=== PATIENT | female | born 1950 | race Caucasian/White ===

== ENCOUNTER 2016-08-13 06:56 | Emergency (ER) | payer MEDICAID, MEDICARE ==
[~2016-08-13] VITALS: Ht 162.6 cm; Wt 86.4 kg
[~2016-08-13 06:56] MED LIST: ACET325T51 PO; ASPI-973 PO; ATOR80TA77 PO; BISA-67 PO; BISA10SU61 RC; CARV6.252 PO; CLOP75TA28 PO; ERGO500050 PO; FENT1PAT7 TRANSDERM; FLUT16SP NS; FOLI1TAB18 PO; GABA-500 PO; GABA-502 PO; GERITUSSIN PO; INSLIS SUBQ; INSU100V7 SUBQ; ISOS30TA4 PO; LEVO75TA4 PO; LOPE2CAP PO; MAGN400O4 PO; MAGN400T23 PO; MECL-114 PO; NA P133E23 RC; NITR0.4T6 SL; ONDA-53 PO; OXYC1TAB24 PO; PANT40TA3 PO; PROC25SU30 RC; VIT1TABL50 PO
--- NOTE | 2016-08-13 07:00 | ED.REPORT ---
HPI-Chest Pain 40 and Over Date of Service Aug 13, 2016 ED Provider: Dr. Norris Pt is a 66 y/o female w/ a hx of ESRD on hemodialysis (MWF), CVA, ischemic cardiomyopathy, CAD, diabetes, HTN, CHF, hyperlipidemia, pulmonary hypertension , presenting to the ED via EMS c/o CP onset prior to arrival. The pt's CP began during a dialysis treatment which is a common occurrence for her. She had no CP prior to dialysis. She is not prescribed any pain medication but goes to the ED each time. She c/o associated productive cough for 1 wk, pleuritic pain. She denies fever, nausea, vomiting. Nursing Notes Stated Complaint: CHEST PAIN Nursing Notes Reviewed: Yes Allergies: Coded Allergies: Penicillins (Verified Allergy, Unknown, 07/19/16) Sulfa (Sulfonamide Antibiotics) (Verified Allergy, Unknown, 07/19/16) quinine (Verified Allergy, Unknown, 07/19/16) Uncoded Allergies: STRAWBERRIES (Allergy, Mild, 07/04/13) RASH Scheduled Aspirin (Aspirin) 81 Mg Tablet 81 MG PO DAILY Atorvastatin Calcium (Atorvastatin Calcium) 80 Mg Tablet 80 MG PO HS Carvedilol (Carvedilol) 6.25 Mg Tablet 12.5 MG PO BID Clopidogrel (Clopidogrel) 75 Mg Tablet 75 MG PO DAILY Ergocalciferol (Vitamin D2) (Drisdol) 50,000 Unit Capsule 50,000 UNIT PO Q7D On Tuesday Fentanyl 25 mcg/hr Patch (Fentanyl 25 mcg/hr Patch) 1 Each Patch.td72 1 PATCH TRANSDERM Q3D Fluticasone Propionate (Fluticasone Propionate Nasal) 16 Gm [place].susp 2 SPRAY NS DAILY Folic Acid (Folic Acid) 1 Mg Tablet 1 MG PO DAILY Gabapentin (Gabapentin) 100 Mg Capsule 100 MG PO Bid at 0500 and 1700 Gabapentin (Gabapentin) 300 Mg Capsule 300 MG PO HS Insulin Glargine (Lantus U100 Insulin Vial) 100 Unit/Ml Vial 20 UNIT SUBQ QAM Insulin Glargine (Lantus U100 Insulin Vial) 100 Unit/Ml Vial 25 UNIT SUBQ QPM Insulin Human Lispro (HumaLOG U100 Insulin Vial) 100 Unit/Ml Unit 10 UNIT SUBQ TID on ,,, Check blood sugars before meals and at bedtime. Use correction factor only before meals. Blood Sugar Lispro Correction: <151, 0 units; 151-175, 1 unit; 176-200, 2 units; 201-225, 3 units; 226-250, 4 units; 251-275, 5 units; 276-300 , 6 units; 301-325, 7 units; 326-350, 8 units; 351-375, 9 units; 376-400, 10 units; >400, 12 units. Insulin Human Lispro (HumaLOG U100 Insulin Vial) 100 Unit/Ml Unit 10 UNIT SUBQ M ,W,F Isosorbide MN ER (Isosorbide MN ER) 30 Mg Tab.er.24h 30 MG PO Siddiqui,,,Sa Levofloxacin (Levaquin) 500 Mg Tablet 500 MG PO every other day Levothyroxine (Levothyroxine) 75 Mcg Tablet 75 MCG PO DAILY Magnesium Oxide (Mag-Oxide) 400 Mg Tablet 400 MG PO BID Pantoprazole DR (Pantoprazole DR) 40 Mg Tablet.dr 40 MG PO DAILY Vit B Cmplx 3/FA/Vit C/Biotin (Nephro-Alyssa Rx) 1 Each Tablet 1 TAB PO DAILY oxyCODONE-Acetaminophen 5-325 mg (oxyCODONE-Acetaminophen 5-325 mg) 1 Each Tablet 1 TAB PO AC dialysis M,W,F Scheduled PRN ([geritussin]) 10 ML PO BID PRN PRN For Cough Acetaminophen (Acetaminophen) 325 Mg Tablet 650 TAB PO Q4 PRN PRN For Pain Bisacodyl (Dulcolax Rectal) 10 Mg Supp.rect 10 MG RC DAILY PRN PRN For Constipation If no BM x3 days Bisacodyl (Dulcolax) 5 Mg Tablet.dr 10 MG PO DAILY PRN PRN For Constipation If no BM x3 days Insulin Human Lispro (HumaLOG U100 Insulin Vial) 100 Unit/Ml Unit 0-12 UNIT SUBQ TIDWM/SS PRN PRN hyperglycemia Check blood sugars before meals and at bedtime. Use correction factor only before meals. Blood Sugar Lispro Correction: <151, 0 units; 151-175, 1 unit; 176-200, 2 units; 201-225, 3 units; 226-250, 4 units; 251-275, 5 units; 276-300 , 6 units; 301-325, 7 units; 326-350, 8 units; 351-375, 9 units; 376-400, 10 units; >400, 12 units. Loperamide (Loperamide) 2 Mg Capsule 4 MG PO PRN PRN PRN For Diarrhea or Loose Stool Magnesium Hydroxide (Milk of Magnesia) 400 Mg/5 Ml Oral.susp 400 MG PO DAILY PRN PRN For Constipation Meclizine (Bonine) 25 Mg Tab.chew 12.5 MG PO DAILY PRN PRN For Dizziness Na Phos,M-B/Na Phos,Di-Ba (Fleet Enema) 133 Ml Enema 133 ML RC DAILY PRN PRN For Constipation Nitroglycerin SL (Nitroglycerin SL) 0.4 Mg Tab.subl 0.4 MG SL PRN PRN PRN For Chest Pain Ondansetron (Ondansetron) 4 Mg Tablet 4 MG PO q8 hours PRN PRN For Nausea Prochlorperazine Maleate (Compazine Suppository) 25 Mg Supp.rect 25 MG RC q6 hours PRN PRN For Nausea/Vomiting oxyCODONE-Acetaminophen 5-325 mg (oxyCODONE-Acetaminophen 5-325 mg) 1 Each Tablet 1-2 TAB PO Q6H PRN PRN For Pain General Time Seen by MD: 07:35 Chief Complaint Chest pain Hx Obtained From: Patient, EMS Arrived By: Ambulance Sudden in Onset?: Yes Onset Occurred: Just prior to arrival Symptom Duration: Since onset Location: : Substernal Quality: Painful Severity: Current: Moderate Severity: Maximum: Moderate Recent Healthcare: Recent doctor visit, Recent testing, Previous diagnosis, Prior workup Similar Sx Previous: Yes Past Medical History Past Medical History Notes: Dialysis 3x week (M,W,F) Water Supervisor: Dr. Vasquez PCP Dr. Man DNR with limited interventions Daughter's Number: Edmund [phone] Past Medical History [place] in 2013 ESRD on dialysis CVA with left sided weakness ischemic cardiomyopathy Chronic pain Chronic LBBB Pulmonary hypotension Hx GI bleed Reports: Congestive heart failure, Coronary artery disease, Diabetes mellitus, Hyperlipidemia, Hypertension Reports: Morbid Obesity, Thyroid disease Past Surgical History UE fistulas- both non functional Reports: Angioplasty, Appendectomy, Cholecystectomy, Tonsillectomy Reports: AICD Smoking History Never Smoker Social History Alcohol Use: Denies alcohol use Other Social History: , Lives in care home, Local resident Ambulatory Status Wheelchair Review of Systems Constitutional: Denies: Chills, Fever Respiratory: Reports: Pleuritic pain, Prod cough, green, Prod cough, yellow Cardiovascular: Reports: Chest pain GI: Denies: Abdominal pain, Nausea, Vomiting Complete sys rev & neg: except as marked. Physical Exam Initial Vital Signs Vital Signs (First) Date Time Temp Pulse Resp B/P Pulse Ox O2 Delivery O2 Flow Rate FiO2 08/13/16 07:06 36.7 69 15 131/62 98 Room Air Initial VS: Reviewed Head / Eyes: Atraumatic, Normocephalic, PERRL ENT: Mucous membranes moist, Conjunctiva normal, No scleral icterus Neck: Supple, Full range of motion Extremities: Vascular intact, Neuro intact, No swelling, No tenderness Skin: Warm, Dry, No cyanosis Neurologic: Alert, Oriented, Nonfocal Psychiatric: Mood/affect normal, Behavior normal, Normal thought content General/Constitutional: Awake, Alert, No acute distress, Cooperative, Not toxic appearing Respiratory / Chest: Atraumatic, Breath sounds NL, Breath sounds = bilat, No respiratory distress, No rales, No rhonchi, No wheezing, No retractions, No stridor, No chest wall deformity, No crepitus Focal, reproducible, sternal chest wall tenderness Cardiovascular: Heart rate NL, Regular rhythm, Heart sounds NL, No gallop, No murmurs, No rubs, Cap refill not delayed, Peripheral circulation NL Abdomen: Atraumatic, Soft, Non-tender, No guarding, No rebound, No palpable mass Interpretation & Diagnostics Lab Results Interpretation Test 08/13/16 08:20 ECG Interpretation ECG Interpretation: Sinus rhythm rate 67 LBBB Time: 07:51 Interpreted by: ED physician Normal ECG Interpretation: No acute ischemic changes, No change from prior ECGs (07/19/16) X-Ray Chest Interpretation Chest Xray Interpretation: IMPRESSION: 1. Lower lobe bronchitis, right greater than left. Dictated by: Gabo Blanca M.D. on 08/13/2016 at 8:10 Approved by: Gabo Blanca M.D. on 08/13/2016 at 8:10 View: Portable, 1 view Interpretation / Wet Read by: Interpret - Radiologist Re-Eval/Medical Decision Med Decision/Clinical Course Focal reproducible sternal chest wall tenderness, upon patient arrival, the patient's daughter who has power of ip technology transactions attorney, Edmund, called and requested that no labs be performed and we simply try to manage her mother's pain. She was given a Percocet 5 mg, which is her regular home dose which relieved her pain. She is discharged home with minimal if any cardiac workup though this was the wish of the patient and her daughter. Return precautions given. Incidentally x-ray shows a bronchitis pattern, clinically this is a dialysis patient with Cough and sputum I expect to be improving rather than worsening, for this reason a course of Levaquin as prescribed. Source of Hx: Old records, EMS Time of Eval: 08:18 Patient Status: Condition improved, Pain improved Re-Evaluation/Progress Note: Discussed case with the pt's daughter Edmund who is the PoA. She is requesting no labs, pain control, start antibiotics, and to call her prior to discharge. Discussed plan with pt. Pt understands and agrees with plan for treatment. F/U and RTER warnings given. All questions addressed. Counseled Regarding: Diagnosis, Need for follow-up, When/why to return to ED Discharge & Departure Primary Impression: Chest pain Chest pain type: unspecified Qualified Code: R07.9 - Chest pain, unspecified Additional Impression: Bronchitis Disposition: Home Discharge Condition All VS Reviewed: Yes Condition: Stable Additional Instructions: Continue your pain medication and other medications as prescribed. Take Levaquin as prescribed. Continue dialysis, follow up with your primary care doctor or return to the ER if worse. Referrals: Rikki Duarte MD (PCP) Shawn Attestation Portions of this note were transcribed by Rob Aragon. I, Dr. Norris personally performed the history, physical exam and medical decision-making; I reviewed and confirmed the accuracy of the information in the transcribed note. Signed by Shawn Guzman, 08/13/16 90 copies to: Rikki Duarte MD, Timothy S DO Aug 13, 2016 07:00 ROB ARAGON Aug 13, 2016 07:03
[2016-08-13 07:06] VITALS: BP 131/62; PULSE 69; RESP 15; O2SAT 100; O2SAT 98
[2016-08-13] MEDS ORDERED: oxyCODONE-Acetamin 5-325 mg Tablet PO ONE (07:40)
--- NOTE | 2016-08-13 08:12 | DRSVH ---
PROCEDURE: X-RAY CHEST ONE VIEW, PORTABLE ([id number]) INDICATIONS: COUGH TECHNIQUE: One view of the chest was acquired. COMPARISON: 07/19/2016 FINDINGS: Surgical changes and devices: Dialysis catheter. AICD. A surgical clips both axilla/upper arms. Lungs and pleura: No pleural effusions or pneumothorax. Low-volume inspiration accentuates interstit ial markings. Bronchial wall thickening is evident in the lower lobes, right greater than left. Mediastinum: Mediastinal contours appear normal. Heart size is normal. Bones and chest wall: No suspicious bony lesions. Overlying soft tissues appear unremarkable. IMPRESSION: 1. Lower lobe bronchitis, right greater than left. Dictated by: Gabo Blanca M.D. on 08/13/2016 at 8:10 Approved by: Gabo Blanca M.D. on 08/13/2016 at 8:10
[2016-08-13] MEDS ORDERED: LEVO500T16 PO (09:01)
[2016-08-13] MEDS ORDERED: levoFLOXacin 750 mg Tablet PO ONE (09:05)
[2016-08-13 09:10] VITALS: BP 135/66; PULSE 63; RESP 14; O2SAT 96
[2016-08-13 10:04] VITALS: BP 135/66; PULSE 63; RESP 14; O2SAT 96
== END 2016-08-13 09:08 | disposition home or self-care (01) ==
LOC: EDBD 06:56 → SED 06:56
DX: J40 Bronchitis, not specified as acute or chronic (principal); I25.2 Old myocardial infarction; I13.11 Hypertensive heart and chronic kidney disease without heart failure, with stage 5 chronic kidney disease, or end stage renal disease; E11.59 Type 2 diabetes mellitus with other circulatory complications; E11.22 Type 2 diabetes mellitus with diabetic chronic kidney disease; I50.9 Heart failure, unspecified; N18.6 End stage renal disease; I25.10 Atherosclerotic heart disease of native coronary artery without angina pectoris; I69.398 Other sequelae of cerebral infarction; R53.1 Weakness; I25.5 Ischemic cardiomyopathy; E07.9 Disorder of thyroid, unspecified; E78.5 Hyperlipidemia, unspecified; Z99.2 Dependence on renal dialysis; Z95.810 Presence of automatic (implantable) cardiac defibrillator; Z79.82 Long term (current) use of aspirin; Z79.4 Long term (current) use of insulin; Z88.0 Allergy status to penicillin; Z88.2 Allergy status to sulfonamides; Z88.8 Allergy status to other drugs, medicaments and biological substances

== ENCOUNTER 2016-08-23 06:26 | Emergency (ER) | payer MEDICARE ==
[~2016-08-23] VITALS: Ht 165.1 cm; Wt 90.9 kg
[~2016-08-23 06:26] MED LIST changes: +LEVO500T16 PO
[2016-08-23 06:29] VITALS: BP 116/60; PULSE 62; RESP 18; O2SAT 91
--- NOTE | 2016-08-23 06:38 | ED.REPORT ---
HPI-Abd Pain F 40 and Over Date of Service Aug 23, 2016 ED Provider: Cheng Hylton MD Pt is a 66 y/o female with an appendectomy in the past and is ESRD on dialysis. who presents to ED via taxi for dull RLQ abdominal pain and right flank pain onset this morning upon awakening. She also reports nausea, dizziness, and SOB. Pt denies vomiting, diarrhea, chest pain and dysuria. Last dialysis was yesterday. Patient is a poor historian. Nursing Notes Stated Complaint: LOW ABDOMINAL PAIN Chief Complaint: Female Abdominal Pain Nursing Notes Reviewed: Yes ([employer] not reconciled EMR indicates ho Plavix use) Allergies: Coded Allergies: Penicillins (Verified Allergy, Unknown, 08/23/16) Sulfa (Sulfonamide Antibiotics) (Verified Allergy, Unknown, 08/23/16) quinine (Verified Allergy, Unknown, 08/23/16) Uncoded Allergies: STRAWBERRIES (Allergy, Mild, 07/04/13) RASH Scheduled Aspirin (Aspirin) 81 Mg Tablet 81 MG PO DAILY Atorvastatin Calcium (Atorvastatin Calcium) 80 Mg Tablet 80 MG PO HS Carvedilol (Carvedilol) 6.25 Mg Tablet 12.5 MG PO BID Clopidogrel (Clopidogrel) 75 Mg Tablet 75 MG PO DAILY Ergocalciferol (Vitamin D2) (Drisdol) 50,000 Unit Capsule 50,000 UNIT PO Q7D On Tuesday Fentanyl 25 mcg/hr Patch (Fentanyl 25 mcg/hr Patch) 1 Each Patch.td72 1 PATCH TRANSDERM Q3D Fluticasone Propionate (Fluticasone Propionate Nasal) 16 Gm [place].susp 2 SPRAY NS DAILY Folic Acid (Folic Acid) 1 Mg Tablet 1 MG PO DAILY Gabapentin (Gabapentin) 100 Mg Capsule 100 MG PO Bid at 0500 and 1700 Gabapentin (Gabapentin) 300 Mg Capsule 300 MG PO HS Insulin Glargine (Lantus U100 Insulin Vial) 100 Unit/Ml Vial 20 UNIT SUBQ QAM Insulin Glargine (Lantus U100 Insulin Vial) 100 Unit/Ml Vial 25 UNIT SUBQ QPM Insulin Human Lispro (HumaLOG U100 Insulin Vial) 100 Unit/Ml Unit 10 UNIT SUBQ TID on ,,, Check blood sugars before meals and at bedtime. Use correction factor only before meals. Blood Sugar Lispro Correction: <151, 0 units; 151-175, 1 unit; 176-200, 2 units; 201-225, 3 units; 226-250, 4 units; 251-275, 5 units; 276-300 , 6 units; 301-325, 7 units; 326-350, 8 units; 351-375, 9 units; 376-400, 10 units; >400, 12 units. Insulin Human Lispro (HumaLOG U100 Insulin Vial) 100 Unit/Ml Unit 10 UNIT SUBQ M ,W,F Isosorbide MN ER (Isosorbide MN ER) 30 Mg Tab.er.24h 30 MG PO ,,, Levofloxacin (Levaquin) 500 Mg Tablet 500 MG PO every other day Levothyroxine (Levothyroxine) 75 Mcg Tablet 75 MCG PO DAILY Magnesium Oxide (Mag-Oxide) 400 Mg Tablet 400 MG PO BID Pantoprazole DR (Pantoprazole DR) 40 Mg Tablet.dr 40 MG PO DAILY Vit B Cmplx 3/FA/Vit C/Biotin (Nephro-Alyssa Rx) 1 Each Tablet 1 TAB PO DAILY oxyCODONE-Acetaminophen 5-325 mg (oxyCODONE-Acetaminophen 5-325 mg) 1 Each Tablet 1 TAB PO AC dialysis M,W,F Scheduled PRN ([geritussin]) 10 ML PO BID PRN PRN For Cough Acetaminophen (Acetaminophen) 325 Mg Tablet 650 TAB PO Q4 PRN PRN For Pain Bisacodyl (Dulcolax Rectal) 10 Mg Supp.rect 10 MG RC DAILY PRN PRN For Constipation If no BM x3 days Bisacodyl (Dulcolax) 5 Mg Tablet.dr 10 MG PO DAILY PRN PRN For Constipation If no BM x3 days Insulin Human Lispro (HumaLOG U100 Insulin Vial) 100 Unit/Ml Unit 0-12 UNIT SUBQ TIDWM/SS PRN PRN hyperglycemia Check blood sugars before meals and at bedtime. Use correction factor only before meals. Blood Sugar Lispro Correction: <151, 0 units; 151-175, 1 unit; 176-200, 2 units; 201-225, 3 units; 226-250, 4 units; 251-275, 5 units; 276-300 , 6 units; 301-325, 7 units; 326-350, 8 units; 351-375, 9 units; 376-400, 10 units; >400, 12 units. Loperamide (Loperamide) 2 Mg Capsule 4 MG PO PRN PRN PRN For Diarrhea or Loose Stool Magnesium Hydroxide (Milk of Magnesia) 400 Mg/5 Ml Oral.susp 400 MG PO DAILY PRN PRN For Constipation Meclizine (Bonine) 25 Mg Tab.chew 12.5 MG PO DAILY PRN PRN For Dizziness Na Phos,M-B/Na Phos,Di-Ba (Fleet Enema) 133 Ml Enema 133 ML RC DAILY PRN PRN For Constipation Nitroglycerin SL (Nitroglycerin SL) 0.4 Mg Tab.subl 0.4 MG SL PRN PRN PRN For Chest Pain Ondansetron (Ondansetron) 4 Mg Tablet 4 MG PO q8 hours PRN PRN For Nausea Prochlorperazine Maleate (Compazine Suppository) 25 Mg Supp.rect 25 MG RC q6 hours PRN PRN For Nausea/Vomiting oxyCODONE-Acetaminophen 5-325 mg (oxyCODONE-Acetaminophen 5-325 mg) 1 Each Tablet 1-2 TAB PO Q6H PRN PRN For Pain General Time Seen by MD: 06:35 Transferred From: shelter Chief Complaint Abdominal pain Hx Obtained From: Patient Arrived By: Walk-in Sudden in Onset?: Yes Onset Occurred: 1 - 4 hours ago Symptom Duration: Since onset Progression since Onset: Gradually worsening Location: : Diffuse Quality: Dull, Painful Radiation: : Does not radiate Severity: Current: Moderate Severity: Maximum: Moderate Associated with: Reports: Nausea, Shortness of breath, Denies: Dysuria, Vomiting Similar Sx Previous: No Past Medical History Past Medical History Notes: Dialysis 3x week (M,W,F) Healthcare Technician: Dr. Vasquez PCP Dr. Man DNR with limited interventions Daughter's Number: Edmund [phone] Past Medical History [place] in 2013 ESRD on dialysis CVA with left sided weakness ischemic cardiomyopathy Chronic pain Chronic LBBB Pulmonary hypotension Hx GI bleed Reports: Congestive heart failure, Coronary artery disease, Diabetes mellitus, Hyperlipidemia, Hypertension Reports: Morbid Obesity, Thyroid disease Past Surgical History UE fistulas- both non functional Reports: Angioplasty, Appendectomy, Cholecystectomy, Tonsillectomy Reports: AICD Smoking History Never Smoker Social History Alcohol Use: Denies alcohol use Other Social History: , Lives in custodial, Local resident Ambulatory Status Wheelchair Review of Systems Constitutional: Denies: Chills, Fever Respiratory: Reports: Shortness of breath, Denies: Non-productive cough Cardiovascular: Denies: Chest pain GI: Reports: Abdominal pain (RLQ), Nausea, Denies: Diarrhea, Vomiting Female: Reports: Flank pain (Right), Denies: Dysuria Complete sys rev & neg: except as marked. Physical Exam Vital Signs Vital Signs (First) Date Time Temp Pulse Resp B/P Pulse Ox O2 Delivery O2 Flow Rate FiO2 08/23/16 06:29 36.3 62 18 116/60 91 Room Air Initial VS: Reviewed, Vital signs normal (but O2 sat 91%) Head / Eyes: Atraumatic, Normocephalic, PERRL Neck: Supple, Non-tender, Full range of motion Extremities: Vascular intact, Neuro intact, No swelling, No tenderness Skin: Warm, Dry, No cyanosis Neurologic: Alert, Oriented, Nonfocal General/Constitutional: Awake, Alert, No acute distress Appearance / Presentation: Positive: Obese, Uncomfortable Little energy, drowsy. Able to answer questions. Respiratory / Chest: Breath sounds NL, Breath sounds = bilat, No respiratory distress, No rales, No rhonchi, No wheezing, No stridor Not dyspneic. Cardiovascular: Heart rate NL, Regular rhythm, Heart sounds NL, Peripheral circulation NL Abdomen: Soft, No guarding, No rebound Tenderness/Guarding/Rebound: Positive: Tender RLQ... Back: Inspection NL, Non-tender, No CVA tenderness ENT: Airway patent Mouth: Positive: Mucous membranes dry Upper Extremity / MS: Full range of motion, Neurologic intact, Vascular intact AV fistula in right arm. Interpretation & Diagnostics Lab Results Interpretation Result Diagram: 08/23/16 0714 08/23/16 0714 Test 08/23/16 07:14 08/23/16 08:55 White Blood Count 6.7th/mm3 (3.8-10.1) Red Blood Count 3.00mil/mm3 (3.90-5.20) Hemoglobin 8.8g/dL (12.0-15.6) Hematocrit 29.4% (35.0-46.0) Mean Corpuscular Volume 98.0fL (81-100) Mean Corpuscular Hemoglobin 29.3pg (27.0-35.0) Mean Corpuscular Hemoglobin Concent 29.9% (32.0-37.0) Red Cell Distribution Width 18.4% (12.3-15.4) Platelet Count 242bil/L (150-400) Neutrophils (%) (Auto) 67.1% (40-74) Lymphocytes (%) (Auto) 18.9% (14-46) Monocytes (%) (Auto) 9.0% (4-12) Eosinophils (%) (Auto) 4.2% (0-5) Basophils (%) (Auto) 0.6% (0-3) Sodium Level 139mEq/L (134-144) Potassium Level 5.1mEq/L (3.5-5.2) Chloride Level 98mEq/L (97-108) Carbon Dioxide Level 27mmol/L (18-29) Blood Urea Nitrogen 52mg/dL (8-27) Creatinine 7.19mg/dL (0.57-1.00) Estimat Glomerular Filtration Rate 8mL/min (>59) Glucose Level 94mg/dL (60-99) Calcium Level 9.5mg/dL (8.5-10.1) Phosphorus Level 5.0mg/dL (2.5-4.9) Magnesium Level 2.8mg/dL (1.6-2.6) Total Bilirubin 0.4mg/dL (0.0-1.2) Aspartate Amino Transf (AST/SGOT) 12U/L (0-50) Alanine Aminotransferase (ALT/SGPT) 5U/L (0-32) Alkaline Phosphatase 109U/L (25-165) Total Protein 7.1g/dL (6.4-8.4) Albumin 3.7g/dL (3.4-5.0) Lipase 9U/L (13-60) Urine Color Yellow (YELLOW) Urine Appearance Hazy (CLEAR,HAZY) Urine pH 5.0 (5.0-8.0) Urine Specific [place] 1.020 (1.003-1.035) Urine Protein Tracemg/dL (NEG,TRACE) Urine Glucose (UA) Negativemg/dL (NEGATIVE) Urine Ketones Tracemg/dL (NEGATIVE) Urine Occult Blood Negative (NEGATIVE) Urine Nitrite Negative (NEGATIVE) Urine Bilirubin Negative (NEGATIVE) Urine Urobilinogen Normalmg/dL (NORMAL) Urine Leukocyte Esterase Negative (NEGATIVE) Urine RBC 0-2/hpf (0-2) Urine WBC 0-5/hpf (0-5) Urine Epithelial Cells Occasional/hpf (NONE-MOD) Urine Crystals Amorphous urates (NONE Urine Bacteria Few/hpf (NONE-FEW) Urine Hyaline Casts None/lpf (NONE) Urine Granular Casts None seen (NONE SEEN) Urine Waxy Casts None seen (NONE SEEN) Urine Red Blood Cell Casts None seen (NONE SEEN) Urine White Blood Cell Casts None seen (NONE SEEN) Urine Mucus None seen (None Seen) Urine Trichomonas None seen (NONE SEEN) Urine Yeast None (NONE SEEN) Urinalysis Comment None Urine Culture Reflexed Not indicated Lab Results Interpretation: CBC chronic anemia CMP chronic renal failure, no acute hyperkalemia UA without findings of trever infection ECG Interpretation ECG Interpretation: Sinus rhythm, Rate 60 Left bundle branch block Time: 07:38 Interpreted by: ED physician X-Ray Chest Interpretation Chest Xray Interpretation: IMPRESSION: Stable cardiomegaly. No definite acute cardiopulmonary process. Dictated by: Herminio Sánchez RRA Interpreted: Tamica Biswas MD on 08/23/2016 at 9:32 Transcribed by: AMADA on 08/23/2016 at 9:32 View: Portable, [address] Abd / Pelvis Interpretation IMPRESSION: Nonobstructive bilateral small renal calculi as above. Bilateral renal cortical atrophy. Age-indeterminate bilateral perinephric stranding, nonspecific. Please correlate clinically and to urinalysis data to exclude acute infection. Study type: Abdominal CT no contrast Interpretation / Wet Read by: Interpret - Radiologist Re-Eval/Medical Decision Med Decision/Clinical Course This is a 66-year-old female who was brought to the area for dialysis by her dialysis transport. The bowel waiting for dialysis apparently developed some abdominal discomfort and was sent over to the ED for further evaluation by the dialysis center. (Please note, I initially ordered labs to the patient chlamydia dialysis yesterday was a difficult tomorrow-this is entirely correct, as the patient was brought here specifically for dialysis today per her routine schedule) The patient is a poor historian, complains of some right-sided pain. She denies fever nausea vomiting diarrhea. She reports she still makes urine and denies dysuria. She has had a Previous appendectomy. Patient's fatigue little drowsy and not a fantastic historian. She is not in acute distress. Abdomen soft obese, she is trace tenderness without guarding or rebound. Screening labs were obtained and were normal except for findings consistent with her chronic renal failure. CT KUB was obtained as nonspecific, no definite pathology identified. A cath urine did not reveal evidence of UTI or infection. Reexamination patient sleeping comfortably, her symptoms have resolved, she denies any abdominal pain. At this point have not identified a dangerous cause of her symptoms. Family arrived, and told the nurses that she is at her baseline. Therefore not finding indication for additional testing based on normal vitals, shortness without markers of more severe pathology, and no acute findings on acute imaging, with resolution of symptoms and family stating patient at baseline status. We have contacted the dialysis center and they have been able to get her back into the schedule and so she is being discharged go directly over to complete dialysis. Source of Hx: Old records Differential Diagnosis: Positive: Acute abdominal pain, Negative: Abdominal aortic aneurysm, Bladder outlet obstruct, Bowel obstruction, Gun shot wound abdomen, Pancreatitis, Peritonitis, Pyelonephritis, Stab wound abdomen, Urinary tract infection Counseled Regarding: Diagnosis, Lab results Discharge & Departure Departure Notes 1. A dangerous cause of the abdominal pain was not identified. 2. Go directly to dialysis for treatment. 3. Return if new or worsening symptoms. Primary Impression: Abdominal Pain Generalized Additional Impression: Chronic kidney disease with end stage renal failure on dialysis Disposition: Home Discharge Condition All VS Reviewed: Yes Condition: Stable Referrals: Rikki Duarte MD (PCP) Scribe Attestation Portions of this note were transcribed by [ Chad Simons and Phil Noriega. I ,Dr. Hylton personally performed the history, physical exam and medical decision-making; I reviewed and confirmed the accuracy of the information in the transcribed note. Signed by:Chad Simons and Phil Noriega, Shawn, and 10:27. copies to: Rikki Duarte MD, Matthew F MD Aug 23, 2016 06:38 Chad Simons Aug 23, 2016 06:51 PHIL NORIEGA Aug 23, 2016 08:38
[2016-08-23 07:29] LABS: BASOPHILS % (AUTO) 0.6 % (0-3); EOSINOPHILS % (AUTO) 4.2 % (0-5); Mean Corpuscular Hemoglobin 29.3 pg (27.0-35.0); NEUTROPHILS % (AUTO) 67.1 % (40-74); Platelet Count 242 bil/L (150-400)
[2016-08-23 08:11] LABS: Magnesium 2.8 mg/dL (1.6-2.6)
[2016-08-23] MEDS ORDERED: fentaNYL-PF 50 mCg/mL 2 mL Inj IVPUSH ONE (08:20)
--- NOTE | 2016-08-23 08:52 | DRSVH ---
PROCEDURE: CT KUB ([id number]) INDICATIONS: R Flank pain, chronic renal failure TECHNIQUE: Noncontrast 5 mm thick sections acquired from the diaphragms to the symphysis. 5 mm thick coronal an d sagittal reformats were then performed. For radiation dose reduction, the following was used: aut omated exposure control, adjustment of mA and/or kV according to patient size. COMPARISON: [facility], CT, ABD/PELVIS W/CON ([facility] 10/31/2013, 16:53. [facility] pital, CT, KUB - CT ([facility]), 09/21/2013, 12:30. FINDINGS: Image quality: Excellent. Lung bases: No acute consolidation although ill-defined nodular and reticular groundglass opacities w ithin the lung bases potentially inflammatory in nature although technically nonspecific. Heart enlar ged. Urinary system: Bilateral renal hilar vascular calcifications are present. Superimposed bilateral 1 mm nonobstructive renal calculi, for example image 29 in the left kidney. No hydronephrosis. Bilatera l renal cortical atrophy. Age-indeterminate bilateral perinephric stranding. Bilateral pelvic phlebol iths are seen. No definite bladder or ureteral calculi. Bladder partially decompressed otherwise unre markable Other solid organs: Liver and spleen are normal in size. Gallbladder surgically absent. Pancreas i s normal in contours. No adrenal nodules. Peritoneum and bowel: Unenhanced bowel loops demonstrate normal wall thickness and caliber. No free fluid or air. Few colonic diverticula Nodes and vessels: No retroperitoneal or mesenteric adenopathy by size criteria. Aorta and inferior vena cava are normal in caliber. Abdominal wall: No ventral hernias. Pelvis: No free pelvic fluid. No inguinal hernias or adenopathy. Bones: No suspicious bony lesions. Chronic appearing left inferior pubic ramus fracture with callus formation. Scattered Schmorl's nodes are present, and probable vertebral body hemangioma image 31 is unchanged. No vertebral body compression fractures. IMPRESSION: Nonobstructive bilateral small renal calculi as above. Bilateral renal cortical atrophy. Age-indeterminate bilateral perinephric stranding, nonspecific. Please correlate clinically and to ur inalysis data to exclude acute infection. Dictated by: Edmund Mitchell M.D. on 08/23/2016 at 8:29 Approved by: Edmund Mitchell M.D. on 08/23/2016 at 8:51
--- NOTE | 2016-08-23 09:32 | DRSVH ---
PROCEDURE: X-RAY CHEST ONE VIEW, PORTABLE ([id number]) INDICATIONS: hypoxia TECHNIQUE: One view of the chest was acquired. COMPARISON: [facility], CR, XR CHEST 1VW (PORTABLE), 08/13/2016, 7:23. [facility], CR, XR CHEST 1VW (PORTABLE), 07/19/2016, 12:41. FINDINGS: Surgical changes and devices: Stable positioning of double lumen left hemodialysis catheter. Stable positioning of left single lead chest AICD. Vascular stent projected over the medial left lung apex. Lungs and pleura: No pleural effusions or pneumothorax. Lungs are clear. Mediastinum: Mediastinal contours appear normal. Heart size is enlarged. Bones and chest wall: No suspicious bony lesions. Overlying soft tissues appear unremarkable. IMPRESSION: Stable cardiomegaly. No definite acute cardiopulmonary process. Dictated by: Herminio STALLINGS Interpreted: Tamica Biswas MD on 08/23/2016 at 9:32 Transcribed by: AMADA on 08/23/2016 at 9:32 Approved by: Tamica Biswas M.D. on 08/23/2016 at 13:37
[2016-08-23 10:30] LABS: APPEARANCE,URINE HAZY (CLEAR,HAZY); COLOR,URINE YELLOW (YELLOW); OCCULT BLOOD,URINE NEGATIVE (NEGATIVE); UROBILINOGEN,URINE NORMAL (NORMAL)
== END 2016-08-23 11:24 | disposition home or self-care (01) ==
LOC: SED 06:26
DX: R10.84 Generalized abdominal pain (principal); I12.0 Hypertensive chronic kidney disease with stage 5 chronic kidney disease or end stage renal disease; E11.22 Type 2 diabetes mellitus with diabetic chronic kidney disease; N18.6 End stage renal disease; R11.0 Nausea; R42 Dizziness and giddiness; R06.02 Shortness of breath; I25.10 Atherosclerotic heart disease of native coronary artery without angina pectoris; I11.0 Hypertensive heart disease with heart failure; E11.59 Type 2 diabetes mellitus with other circulatory complications; I50.9 Heart failure, unspecified; I25.2 Old myocardial infarction; I69.398 Other sequelae of cerebral infarction; R53.1 Weakness; I25.5 Ischemic cardiomyopathy; E78.5 Hyperlipidemia, unspecified; E07.9 Disorder of thyroid, unspecified; Z99.2 Dependence on renal dialysis; Z95.5 Presence of coronary angioplasty implant and graft; Z95.810 Presence of automatic (implantable) cardiac defibrillator; Z79.82 Long term (current) use of aspirin; Z79.4 Long term (current) use of insulin; Z88.0 Allergy status to penicillin; Z88.2 Allergy status to sulfonamides; Z88.8 Allergy status to other drugs, medicaments and biological substances

== ENCOUNTER 2016-09-22 06:32 | Emergency (ER) | payer MEDICAID, MEDICARE ==
[~2016-09-22] VITALS: Ht 162.6 cm; Wt 85.5 kg
[2016-09-22 06:43] VITALS: BP 148/68; PULSE 61; RESP 18; O2SAT 95
--- NOTE | 2016-09-22 06:53 | ED.REPORT ---
HPI-Trauma Minor / Fall Date of Service Sep 22, 2016 ED Provider: Nate Magdaleno MD The patient is a 66 year old female hx of ESRD on hemodialysis (MWF), CVA, ischemic cardiomyopathy, CAD, diabetes, HTN, CHF, hyperlipidemia, and pulmonary hypertension who presents to the ED via EMS from [facility] after a ground level fall c/o pain in the left shoulder and left hip. Pt "slipped" out of bed, lost her balance and fell, but did not lose consciousness. She reports with a bruised left eye, small facial bruises and is moving all four extremities. She has a left shoulder and left hip bruise and is able to bear weight. There is no pain with movement. She was sent from dialysis for medical evaluation. She normally uses a walker. She says that she has been having some diarrhea for the past days. Nursing Notes Stated Complaint: GLF Chief Complaint: Multiple Trauma/Fall Nursing Notes Reviewed: Yes Allergies: Coded Allergies: Penicillins (Verified Allergy, Unknown, 09/22/16) Sulfa (Sulfonamide Antibiotics) (Verified Allergy, Unknown, 09/22/16) quinine (Verified Allergy, Unknown, 09/22/16) Uncoded Allergies: STRAWBERRIES (Allergy, Mild, 07/04/13) RASH Scheduled Aspirin (Aspirin) 81 Mg Tablet 81 MG PO DAILY Atorvastatin Calcium (Atorvastatin Calcium) 80 Mg Tablet 80 MG PO HS Carvedilol (Carvedilol) 6.25 Mg Tablet 12.5 MG PO BID Clopidogrel (Clopidogrel) 75 Mg Tablet 75 MG PO DAILY Ergocalciferol (Vitamin D2) (Drisdol) 50,000 Unit Capsule 50,000 UNIT PO Q7D On Tuesday Fentanyl 25 mcg/hr Patch (Fentanyl 25 mcg/hr Patch) 1 Each Patch.td72 1 PATCH TRANSDERM Q3D Fluticasone Propionate (Fluticasone Propionate Nasal) 16 Gm [place].susp 2 SPRAY NS DAILY Folic Acid (Folic Acid) 1 Mg Tablet 1 MG PO DAILY Gabapentin (Gabapentin) 100 Mg Capsule 100 MG PO Bid at 0500 and 1700 Gabapentin (Gabapentin) 300 Mg Capsule 300 MG PO HS Insulin Glargine (Lantus U100 Insulin Vial) 100 Unit/Ml Vial 20 UNIT SUBQ QAM Insulin Glargine (Lantus U100 Insulin Vial) 100 Unit/Ml Vial 25 UNIT SUBQ QPM Insulin Human Lispro (HumaLOG U100 Insulin Vial) 100 Unit/Ml Unit 10 UNIT SUBQ TID on ,,, Check blood sugars before meals and at bedtime. Use correction factor only before meals. Blood Sugar Lispro Correction: <151, 0 units; 151-175, 1 unit; 176-200, 2 units; 201-225, 3 units; 226-250, 4 units; 251-275, 5 units; 276-300 , 6 units; 301-325, 7 units; 326-350, 8 units; 351-375, 9 units; 376-400, 10 units; >400, 12 units. Insulin Human Lispro (HumaLOG U100 Insulin Vial) 100 Unit/Ml Unit 10 UNIT SUBQ M ,W,F Isosorbide MN ER (Isosorbide MN ER) 30 Mg Tab.er.24h 30 MG PO ,,, Levofloxacin (Levaquin) 500 Mg Tablet 500 MG PO every other day Levothyroxine (Levothyroxine) 75 Mcg Tablet 75 MCG PO DAILY Magnesium Oxide (Mag-Oxide) 400 Mg Tablet 400 MG PO BID Pantoprazole DR (Pantoprazole DR) 40 Mg Tablet.dr 40 MG PO DAILY Vit B Cmplx 3/FA/Vit C/Biotin (Nephro-Alyssa Rx) 1 Each Tablet 1 TAB PO DAILY oxyCODONE-Acetaminophen 5-325 mg (oxyCODONE-Acetaminophen 5-325 mg) 1 Each Tablet 1 TAB PO AC dialysis M,W,F Scheduled PRN ([geritussin]) 10 ML PO BID PRN PRN For Cough Acetaminophen (Acetaminophen) 325 Mg Tablet 650 TAB PO Q4 PRN PRN For Pain Bisacodyl (Dulcolax Rectal) 10 Mg Supp.rect 10 MG RC DAILY PRN PRN For Constipation If no BM x3 days Bisacodyl (Dulcolax) 5 Mg Tablet.dr 10 MG PO DAILY PRN PRN For Constipation If no BM x3 days Insulin Human Lispro (HumaLOG U100 Insulin Vial) 100 Unit/Ml Unit 0-12 UNIT SUBQ TIDWM/SS PRN PRN hyperglycemia Check blood sugars before meals and at bedtime. Use correction factor only before meals. Blood Sugar Lispro Correction: <151, 0 units; 151-175, 1 unit; 176-200, 2 units; 201-225, 3 units; 226-250, 4 units; 251-275, 5 units; 276-300 , 6 units; 301-325, 7 units; 326-350, 8 units; 351-375, 9 units; 376-400, 10 units; >400, 12 units. Loperamide (Loperamide) 2 Mg Capsule 4 MG PO PRN PRN PRN For Diarrhea or Loose Stool Magnesium Hydroxide (Milk of Magnesia) 400 Mg/5 Ml Oral.susp 400 MG PO DAILY PRN PRN For Constipation Meclizine (Bonine) 25 Mg Tab.chew 12.5 MG PO DAILY PRN PRN For Dizziness Na Phos,M-B/Na Phos,Di-Ba (Fleet Enema) 133 Ml Enema 133 ML RC DAILY PRN PRN For Constipation Nitroglycerin SL (Nitroglycerin SL) 0.4 Mg Tab.subl 0.4 MG SL PRN PRN PRN For Chest Pain Ondansetron (Ondansetron) 4 Mg Tablet 4 MG PO q8 hours PRN PRN For Nausea Prochlorperazine Maleate (Compazine Suppository) 25 Mg Supp.rect 25 MG RC q6 hours PRN PRN For Nausea/Vomiting oxyCODONE-Acetaminophen 5-325 mg (oxyCODONE-Acetaminophen 5-325 mg) 1 Each Tablet 1-2 TAB PO Q6H PRN PRN For Pain General Time Seen by MD: 06:46 Chief Complaint Fall Hx Obtained From: Patient Arrived By: Ambulance Onset Occurred: Just prior to arrival Symptom Duration: Since onset Location: Face (left) Hip left Shoulder left Quality: Painful Severity: Current: Mild Recent Healthcare: Recent doctor visit Similar Sx Previous: Yes Past Medical History Past Medical History Notes: Dialysis 3x week (M,W,F) Installment Account Checker: Dr. Vasquez PCP Dr. Man DNR with limited interventions Daughter's Number: Edmund [phone] Past Medical History [place] in 2013 ESRD on dialysis CVA with left sided weakness ischemic cardiomyopathy Chronic pain Chronic LBBB Pulmonary hypotension Hx GI bleed Reports: Congestive heart failure, Coronary artery disease, Diabetes mellitus, Hyperlipidemia, Hypertension Reports: Morbid Obesity, Thyroid disease Past Surgical History UE fistulas- both non functional Reports: Angioplasty, Appendectomy, Cholecystectomy, Tonsillectomy Reports: AICD Smoking History Never Smoker Social History Alcohol Use: Denies alcohol use Other Social History: , Lives in retirement, Local resident Ambulatory Status Walker Review of Systems Musculoskeletal: Reports: Joint pain (left shoulder and left hip) Skin: Reports Bruising (left eye ) Complete sys rev & neg: except as marked. Physical Exam Initial Vital Signs Vital Signs (First) Date Time Temp Pulse Resp B/P Pulse Ox O2 Delivery O2 Flow Rate FiO2 09/22/16 06:43 37 61 18 148/68 95 Room Air Initial VS: Reviewed Head / Eyes: Atraumatic, Normocephalic, PERRL ENT: Mucous membranes moist, Conjunctiva normal, No scleral icterus Respiratory: Breath sounds normal, Clear to auscultation, No respiratory distress Cardiovascular: Regular rate & rhythm, Heart sounds normal, Intact distal pulses Abdomen / GI: Soft, Non-tender, No guarding, No rebound, No distention Skin: Warm, Dry, No cyanosis Neurologic: Alert, Oriented, Nonfocal Psychiatric: Mood/affect normal, Behavior normal, Normal thought content General/Constitutional: Awake, Alert, Cooperative Appearance / Presentation: Positive: Obese Neck: Atraumatic, Supple, No meningismus, Full range of motion Left Elbow: Positive: Tenderness present... (Mild) Painful movement of left elbow but FROM Left Hip: Positive: Tenderness present... (Mild) Painful interior and exterior rotation of left hip Painful greater trochanter on left leg but able to ambulate Interpretation & Diagnostics Interpretation & Diagnostics: HIP/PELVIS X-RAY IMPRESSION: No acute fracture. No osseous lesion. If symptoms and/or clinical suspicion for pathology persist, further assessment with repeat, or advanced imaging (e.g., CT, MRI, or bone scan) may be helpful for further assessment. Dictated by: Jose Miguel Doan M.D. on 09/22/2016 at 8:19 Approved by: Jose Miguel Doan M.D. on 09/22/2016 at 8:21 X-Ray Interpretation Xray Interpretation: SHOULDER X-RAY IMPRESSION: Osteoarthritis. No acute fracture. No osseous lesion. If symptoms and/or clinical suspicion for pathology persist, further assessment with repeat, or advanced imaging (e.g., CT, MRI, or bone scan) may be helpful for further assessment. Dictated by: Jose Miguel Doan M.D. on 09/22/2016 at 8:21 Approved by: Jose Miguel Doan M.D. on 09/22/2016 at 8:22 Re-Eval/Medical Decision Re-Evaluation/Progress : Time of Eval: 09:04 Patient Status: Condition improved Re-Evaluation/Progress Note: Patient is able to ambulate without too much difficulty. Pain is tolerable in the left hip. She ambulates with full assist of 2 individuals for balance. She normally uses a walker. Counseled Regarding: Diagnosis, Lab results, Need for follow-up, When/why to return to ED Discharge & Departure Impression: Primary Impression: Fall from ground level Additional Impressions: Contusion of face Encounter type: initial encounter Qualified Code: S00.83XA - Contusion of other part of head, initial encounter Contusion of left arm Encounter type: initial encounter Qualified Code: S40.022A - Contusion of left upper arm, initial encounter Contusion of left hip Encounter type: initial encounter Qualified Code: S70.02XA - Contusion of left hip, initial encounter Disposition: Home Patient Instructions: Fall Prevention for Older Adults (GEN) Additional Instructions: No dangerous injuries are identified. I recommend follow-up in 3-4 days if the symptoms of pain in your shoulder, elbow or hip persist. Toe directly to dialysis today, they are expecting you. Referrals: Rikki Duarte MD (PCP) Scribe Attestation Portion of this note were transcribed by Heidi Kramer. I, Dr. Magdaleno, personally performed the history, physical exam, and medical decision-making: I reviewed and confirmed the accuracy for the information in the transcribed note. Signed by: keven Michaels, 09/22/16 [id number] copies to: Rikki Duarte MD, Kirk H MD Sep 22, 2016 06:52 HEIDI KRAMER Sep 22, 2016 09:20
[2016-09-22] MEDS ORDERED: oxyCODONE-Acetamin 10-325 mg Tablet PO ONE (06:55)
--- NOTE | 2016-09-22 08:23 | DRSVH ---
PROCEDURE: X-RAY PELVIS W/LAT HIP (LT) ([id number]) INDICATIONS: trauma TECHNIQUE: AP pelvis with lateral view(s) of the left hip(s). COMPARISON: [facility], CT, CT KUB, 08/23/2016, 7:23. [facility], CT, ABD/PE LVIS W/CON (PNL), 10/31/2013, 16:53. [facility], CR, PELVIS W/LAT HIP (LT) (PNL), 02/29/20 12, 23:12. FINDINGS: Bones: No acute fractures or dislocations. Healed left inferior pubic ramus fracture is present, as before. Pelvic ring appears intact. No suspicious bony lesions. Soft tissues: The visualized bowel gas pattern is normal. No suspicious soft tissue calcifications. IMPRESSION: No acute fracture. No osseous lesion. If symptoms and/or clinical suspicion for patholog y persist, further assessment with repeat, or advanced imaging (e.g., CT, MRI, or bone scan) may be h elpful for further assessment. Dictated by: Jose Miguel Doan M.D. on 09/22/2016 at 8:19 Approved by: Jose Miguel Doan M.D. on 09/22/2016 at 8:21
--- NOTE | 2016-09-22 08:24 | DRSVH ---
PROCEDURE: X-RAY LEFT SHOULDER, MINIMUM TWO VIEWS ([id number]) INDICATIONS: trauma TECHNIQUE: 3 views of the shoulder were acquired. COMPARISON: None. FINDINGS: Bones: No fractures or dislocations. No suspicious bony lesions. Visualized ribs appear intact. P eriarticular osteophyte formation at the glenohumeral and acromioclavicular joints is present. Soft tissues: No suspicious soft tissue calcifications. IMPRESSION: Osteoarthritis. No acute fracture. No osseous lesion. If symptoms and/or clinical suspici on for pathology persist, further assessment with repeat, or advanced imaging (e.g., CT, MRI, or bone scan) may be helpful for further assessment. Dictated by: Jose Miguel Doan M.D. on 09/22/2016 at 8:21 Approved by: Jose Miguel Doan M.D. on 09/22/2016 at 8:22
[2016-09-22 09:15] VITALS: BP 115/70; PULSE 60; RESP 18; O2SAT 97
== END 2016-09-22 09:15 | disposition home or self-care (01) ==
LOC: SED 06:32 → EDUNIT# 06:32 → EDBD 06:32 → SED 09:15
DX: S00.83XA Contusion of other part of head, initial encounter (principal); S40.022A Contusion of left upper arm, initial encounter; W06.XXXA Fall from bed, initial encounter; Y93.89 Activity, other specified; Y92.122 Bedroom in nursing home as the place of occurrence of the external cause; Y99.8 Other external cause status; I12.0 Hypertensive chronic kidney disease with stage 5 chronic kidney disease or end stage renal disease; N18.6 End stage renal disease; E11.22 Type 2 diabetes mellitus with diabetic chronic kidney disease; I50.9 Heart failure, unspecified; E78.5 Hyperlipidemia, unspecified; I25.10 Atherosclerotic heart disease of native coronary artery without angina pectoris; Z86.73 Personal history of transient ischemic attack (TIA), and cerebral infarction without residual deficits; Z79.82 Long term (current) use of aspirin; Z79.4 Long term (current) use of insulin; Z99.2 Dependence on renal dialysis; Z88.0 Allergy status to penicillin; Z88.2 Allergy status to sulfonamides